=== PATIENT | male | born 1965 | race Two or more races ===

== ENCOUNTER 2021-06-15 10:45 | Inpatient (IN) | payer OTHER ==
[~2021-06-15] VITALS: Ht 162.6 cm; Wt 90.7 kg
[2021-06-15] MEDS ORDERED: ADULT LOW DOSE81 M1 PO (14:06)
[2021-06-15] MEDS ORDERED: GLIMEPIRIDE4 M1 PO (14:07)
[2021-06-15] MEDS ORDERED: COZAAR50 MG PO (14:07)
[2021-06-15] MEDS ORDERED: SIMVASTATIN10 MG PO (14:07)
[2021-06-15] MEDS ORDERED: JANUMET 50-1,01 EACH PO (14:07)
[2021-06-15] MEDS ORDERED: D3 + K2 DOTS 11 EACH PO (14:08)
[2021-06-21] MEDS ORDERED: COLACE100 MG PO (12:37)
[2021-06-21] MEDS ORDERED: NEURONTIN800 MG PO (12:37)
[2021-06-21] MEDS ORDERED: MEDROLPACK PO (12:37)
[2021-06-21] MEDS ORDERED: AMOX-CLAV 875-1 EACH PO (12:37)
[2021-06-21] MEDS ORDERED: PERCOCET 5-3251 EACH PO (12:37)
[2021-06-21] MEDS ORDERED: DIAZEPAM5 MG PO (12:37)
== END 2021-06-22 12:00 | disposition home or self-care (01) | DRG 455 ==
LOC: O/R 06-21 07:10 → SURH 06-21 10:45 → PED 06-21 23:03
PROVIDERS: ADMIT Orthopaedic Surgery Orthopaedic Surgery of the Spine; ATTEND Orthopaedic Surgery Orthopaedic Surgery of the Spine
PROC: 0SG30J1 Fusion of Lumbosacral Joint with Synthetic Substitute, Posterior Approach, Posterior Column, Open Approach (ICD-10-PCS; 2021-06-21)
PROC: 07DR0ZZ Extraction of Iliac Bone Marrow, Open Approach (ICD-10-PCS; 2021-06-21)
PROC: 0SG30AJ Fusion of Lumbosacral Joint with Interbody Fusion Device, Posterior Approach, Anterior Column, Open Approach (ICD-10-PCS; principal; 2021-06-21 15:30)
DX: M43.17 Spondylolisthesis, lumbosacral region (principal); M51.37 Other intervertebral disc degeneration, lumbosacral region